=== PATIENT | male | born 1960 | race Caucasian/White ===

== ENCOUNTER 2020-11-15 20:36 | Emergency (ER) | payer OTHER ==
[~2020-11-15] VITALS: Ht 177.8 cm; Wt 102.1 kg
[2020-11-15] MEDS ORDERED: ATORVASTATIN CA20 MG (20:55)
[2020-11-15] MEDS ORDERED: CENTRUM SILVER1 EAC1 (20:55)
[2020-11-15] MEDS ORDERED: HYDROCHLOROTH12.5 MG (20:56)
[2020-11-15] MEDS ORDERED: AMRIX15 MG (20:56)
[2020-11-15] MEDS ORDERED: LOSARTAN POTAS100 MG (20:56)
[2020-11-15] MEDS ORDERED: METOPROLOL SUCC25 MG (20:56)
[2020-11-15] MEDS ORDERED: GEMFIBROZIL600 MG (20:56)
[2020-11-15] MEDS ORDERED: SYSTANE GEL10 GM (20:57)
== END 2020-11-15 23:56 | disposition home or self-care (01) ==
LOC: ER 20:36
DX: M25.511 Pain in right shoulder (principal)

== ENCOUNTER 2024-01-20 06:11 | Outpatient (CLI) | payer OTHER ==
[~2024-01-20 06:11] MED LIST: AMRIX15 MG; ATORVASTATIN CA20 MG; CENTRUM SILVER1 EAC1; GEMFIBROZIL600 MG; HYDROCHLOROTH12.5 MG; LOSARTAN POTAS100 MG; METOPROLOL SUCC25 MG; SYSTANE GEL10 GM
[2024-01-20 07:02] LABS: HEMATOCRIT 40.7 % (39.0-48.0); HEMOGLOBIN 13.9 g/dL (13-16.00); MEAN CELL VOLUME 82.4 fL (80.0-100.00); MEAN CORPUSCULAR HEMOGLOBIN 28.2 pg (27.00-32.0); MEAN CORPUSCULAR HGB CONC 34.2 g/dl (32.0-36.0); PLATELET COUNT 298 K/uL (150-450); RED BLOOD COUNT 4.95 M/uL (4.00-6.00); RED CELL DISTRIBUTION WIDTH 13.7 % (11.5-14.5)
[2024-01-20 07:33] LABS: INR 1.04; PARTIAL THROMBOPLASTIN TIME 29.6 SECONDS (22.0-34.0); PROTHROMBIN TIME 10.9 SECONDS (9.0-11.5)
[2024-01-20 07:35] LABS: ALBUMIN 3.8 gm/dL (3.4-5.0); BILIRUBIN TOTAL 0.37 mg/dL (0.3-1.2); CALCIUM 9.2 mg/dL (8.5-10.1); CREATININE SERUM 0.82 mg/dL (0.70-1.30); GFR 94.29; GLOBULINA 3.8 G/DL (2.4-3.5); POTASSIUM 4.53 mEq/L (3.5-5.1); TOTAL PROTEIN 7.6 gm/dL (6.4-8.2)
[2024-01-20 07:39] LABS: PH,URINE 5.5 (5.0-8.0); URINE APPEARANCE Clear; URINE BILIRRUBIN Negative (NEGATIVE); URINE BLOOD Negative; URINE COLOR Yellow; URINE GLUCOSE Negative (NEGATIVE); URINE LEUKOCYTE Negative; URINE NITRATE Negative; URINE PROTEIN Negative (NEGATIVE); URINE UROBILINOGEN 0.2 E.U./dl
[2024-01-20 07:42] LABS: URINE RBC 7.1 uL (0.0-20.8); URINE WBC 2.1 uL (0.0-23.2)
[2024-01-20 08:13] LABS: COL EPI 140 SECONDS (82-175)
[2024-01-20 09:01] LABS: URINE EPITHELIAL CELLS 0.9 uL (0.0-38.8)
== END 2024-01-20 06:21 | disposition home or self-care (01) ==
LOC: LAB 06:11 → RAD 06:11 → LAB 06:21
PROVIDERS: ATTEND Orthopaedic Surgery
DX: D64.9 Anemia, unspecified (principal); E88.89 Other specified metabolic disorders; D68.8 Other specified coagulation defects; N39.0 Urinary tract infection, site not specified; Z22.322 Carrier or suspected carrier of Methicillin resistant Staphylococcus aureus; Z76.89 Persons encountering health services in other specified circumstances; I10 Essential (primary) hypertension

== ENCOUNTER 2024-02-13 09:54 | Outpatient (CLI) | payer OTHER | END 2024-02-13 09:57 | disposition home or self-care (01) | LOC: LAB 09:54 | PROVIDERS: ATTEND Orthopaedic Surgery | DX: Z22.322 Carrier or suspected carrier of Methicillin resistant Staphylococcus aureus (principal) ==

== ENCOUNTER → 2024-02-22 09:10 | Outpatient (CLI) | payer OTHER ==
[2024-02-22 10:40] LABS: HEMATOCRIT 39.7 % (39.0-48.0); HEMOGLOBIN 13.5 g/dL (13-16.00); MEAN CELL VOLUME 82.6 fL (80.0-100.00); MEAN CORPUSCULAR HEMOGLOBIN 28.1 pg (27.00-32.0); MEAN CORPUSCULAR HGB CONC 34.1 g/dl (32.0-36.0); PLATELET COUNT 283 K/uL (150-450); RED BLOOD COUNT 4.81 M/uL (4.00-6.00); RED CELL DISTRIBUTION WIDTH 13.7 % (11.5-14.5)
[2024-02-22 11:01] LABS: INR 1.06; PARTIAL THROMBOPLASTIN TIME 28.4 SECONDS (22.0-34.0); PROTHROMBIN TIME 11.1 SECONDS (9.0-11.5)
[2024-02-22 11:26] LABS: ALBUMIN 3.9 gm/dL (3.4-5.0); BILIRUBIN TOTAL 0.4 mg/dL (0.3-1.2); CALCIUM 9.1 mg/dL (8.5-10.1); CREATININE SERUM 0.83 mg/dL (0.70-1.30); GFR 92.98; GLOBULINA 3.8 G/DL (2.4-3.5); POTASSIUM 4.49 mEq/L (3.5-5.1); TOTAL PROTEIN 7.7 gm/dL (6.4-8.2)
[2024-02-22 11:42] LABS: PH,URINE 5.5 (5.0-8.0); URINE APPEARANCE Clear; URINE BILIRRUBIN Negative (NEGATIVE); URINE BLOOD Negative; URINE COLOR Yellow; URINE GLUCOSE Negative (NEGATIVE); URINE LEUKOCYTE Negative; URINE NITRATE Negative; URINE PROTEIN Negative (NEGATIVE); URINE UROBILINOGEN 0.2 E.U./dl
[2024-02-22 11:43] LABS: URINE RBC 11.2 uL (0.0-20.8); URINE WBC 1.8 uL (0.0-23.2)
[2024-02-22 11:50] LABS: URINE EPITHELIAL CELLS 1.3 uL (0.0-38.8)
== END | disposition home or self-care (01) ==
LOC: LAB 09:10
PROVIDERS: ATTEND Orthopaedic Surgery
DX: D64.9 Anemia, unspecified (principal); E88.89 Other specified metabolic disorders; D68.8 Other specified coagulation defects; N39.0 Urinary tract infection, site not specified; Z22.322 Carrier or suspected carrier of Methicillin resistant Staphylococcus aureus; E11.9 Type 2 diabetes mellitus without complications; I10 Essential (primary) hypertension; Z76.89 Persons encountering health services in other specified circumstances

== ENCOUNTER 2024-04-11 16:47 | Outpatient (CLI) | payer OTHER ==
[2024-04-11 18:31] LABS: SYNOVIAL FLUID APPEARANCE HAZY; SYNOVIAL FLUID COLOR YELLOW
[2024-04-11 18:50] LABS: MONONUCLEAR 69 %; POLYMORPHONUCLEAR 31 %
== END 2024-04-11 17:02 | disposition home or self-care (01) ==
LOC: LAB 16:47
PROVIDERS: ATTEND Orthopaedic Surgery
DX: M25.462 Effusion, left knee (principal)